=== PATIENT | male | born 1990 | race Caucasian/White ===

== ENCOUNTER 2020-04-23 14:24 | Inpatient (IN) | payer OTHER ==
[2020-04-23 15:39] VITALS: BMI 26.5
[2020-04-23] MEDS ORDERED: ACETAMINOPHEN 325 MG TABLET (FP) PO PRN ×2 (20:04)
[2020-04-23] MEDS ORDERED: MAGNESIUM CITRATE 300 ML BOTTLE PO PRN (20:04)
[2020-04-23] MEDS ORDERED: ONDANSETRON *ODT* 4 MG TABLET SL PRN (20:04)
[2020-04-23] MEDS ORDERED: MENTHOL/PHENOL 1 EACH UD MM PRN (20:04)
[2020-04-23] MEDS ORDERED: MAG HYDROX/AL HYDROX/SIMETH 30 ML UNIT-DOSE CUP PO PRN (20:04)
[2020-04-23] MEDS ORDERED: MAGNESIUM HYDROX 2400MG/30ML ORAL SUSPENSION 30 ML CUP PO PRN (20:04)
[2020-04-23] MEDS ORDERED: IBUPROFEN 400 MG TABLET (FP) PO PRN (20:04)
[2020-04-23] MEDS ORDERED: BISMUTH SUBSALICYLATE 524 MG/30 ML UD PO PRN (20:04)
[2020-04-23] MEDS ORDERED: METHADONE HCL 10 MG TABLET (FOR DETOX USE ONLY) PO ONE (20:07)
[2020-04-23] MEDS ORDERED: METHADONE 20 MG, METHADONE 5 MG PO ONE (21:00)
[2020-04-23] MEDS ORDERED: METHADONE (DETOX) 20 MG, METHADONE (DETOX) 5 MG PO ONE (21:00)
[2020-04-23] MEDS ORDERED: METHADONE HCL 5 MG TABLET (FOR DETOX USE ONLY) ONE (21:22)
[2020-04-23] MEDS ORDERED: METHADONE HCL 10 MG TABLET (FOR DETOX USE ONLY) ONE (21:23)
[2020-04-23] MEDS: hydrOXYzine PAMOATE 25 MG CAPSULE (FP) PO PRN (21:35)
[2020-04-23] MEDS: THIAMINE HCL 100 MG TABLET (FP) PO SCH (21:35)
[2020-04-23] MEDS ORDERED: MELATONIN 5 MG TABLETS PO SCH (22:00)
[2020-04-23] MEDS: METHOCARBAMOL 500 MG TABLET PO PRN (22:59)
[2020-04-23] MEDS ORDERED: hydrOXYzine PAMOATE 25 MG CAPSULE (FP) PO ONE (23:00)
[2020-04-23] MEDS ORDERED: MELATONIN 5 MG TABLETS PO ONE (23:01)
[2020-04-24] MEDS: GABAPENTIN 400 MG CAPSULE PO SCH ×3 (06:05→22:18)
[2020-04-24] MEDS: PRENATAL VITAMINS W/ FOLIC ACID TABLET (FP) PO SCH (09:18)
[2020-04-24] MEDS ORDERED: METHADONE HCL 10 MG TABLET (FOR DETOX USE ONLY) PO ONE (10:00)
[2020-04-24] MEDS: METHOCARBAMOL 500 MG TABLET PO PRN (12:26)
[2020-04-24] MEDS: hydrOXYzine PAMOATE 25 MG CAPSULE (FP) PO PRN (12:27)
[2020-04-24] MEDS: cloNIDine HCL 0.1 MG TABLET PO PRN ×2 (12:27→18:49)
[2020-04-24 13:44] LABS: POTASSIUM 4.1 mmol/L (3.5-5.1)
[2020-04-24 13:48] LABS: ALBUMIN 4.2 g/dl (3.4-5.0); BLOOD UREA NITROGEN 8.6 mg/dL (7-18); CALCIUM 9.5 mg/dL (8.5-10.1); HEMATOCRIT 39.1 % (35.4-49); HEMOGLOBIN 13.1 GM/dL (11.7-16.9); MCH 28.1 pg (25.7-33.7); MCHC 33.4 g/dl (32.0-35.9); MEAN CELL VOLUME 84.1 fl (80-96); MEAN PLT VOLUME 9.2 fl (7.5-11.1); PLATELET COUNT 219 K/MM3 (134-434); RBC 4.65 M/mm3 (4.00-5.60); RDW 13.2 % (11.9-15.9); WHITE BLOOD COUNT 5.8 K/mm3 (4.0-10.0)
[2020-04-24 13:51] LABS: CREATININE 0.7 mg/dL (0.55-1.3)
[2020-04-24 13:52] LABS: BILIRUBIN,TOTAL 0.9 mg/dL (0.2-1); TOT PROT 6.9 g/dl (6.4-8.2)
[2020-04-24] MEDS: THIAMINE HCL 100 MG TABLET (FP) PO SCH (22:18)
[2020-04-24] MEDS: MELATONIN 5 MG TABLETS PO SCH (22:19)
[2020-04-24] MEDS: SUVOREXANT 10 MG TABLET PO PRN (22:27)
[2020-04-25] MEDS: GABAPENTIN 400 MG CAPSULE PO SCH ×3 (05:54→22:10)
[2020-04-25] MEDS: hydrOXYzine PAMOATE 25 MG CAPSULE (FP) PO PRN ×4 (05:55→23:07)
[2020-04-25] MEDS: cloNIDine HCL 0.1 MG TABLET PO PRN ×4 (05:56→23:07)
[2020-04-25] MEDS: PRENATAL VITAMINS W/ FOLIC ACID TABLET (FP) PO SCH (09:17)
[2020-04-25] MEDS ORDERED: METHADONE HCL 5 MG TABLET (FOR DETOX USE ONLY) PO ONE (10:00)
[2020-04-25] MEDS: THIAMINE HCL 100 MG TABLET (FP) PO SCH (22:10)
[2020-04-25] MEDS: SUVOREXANT 10 MG TABLET PO PRN (22:12)
[2020-04-25] MEDS: MELATONIN 5 MG TABLETS PO SCH (22:12)
[2020-04-25] MEDS: METHOCARBAMOL 500 MG TABLET PO PRN (23:07)
[2020-04-26] MEDS: GABAPENTIN 400 MG CAPSULE PO SCH ×3 (06:04→22:37)
[2020-04-26] MEDS: hydrOXYzine PAMOATE 25 MG CAPSULE (FP) PO PRN ×3 (06:51→18:38)
[2020-04-26] MEDS: PRENATAL VITAMINS W/ FOLIC ACID TABLET (FP) PO SCH (09:24)
[2020-04-26] MEDS ORDERED: METHADONE HCL 10 MG TABLET (FOR DETOX USE ONLY) PO ONE (10:00)
[2020-04-26] MEDS: METHOCARBAMOL 500 MG TABLET PO PRN (18:38)
[2020-04-26] MEDS: THIAMINE HCL 100 MG TABLET (FP) PO SCH (22:37)
[2020-04-26] MEDS: SUVOREXANT 10 MG TABLET PO PRN (22:37)
[2020-04-26] MEDS: MELATONIN 5 MG TABLETS PO SCH (22:37)
[2020-04-27] MEDS: hydrOXYzine PAMOATE 25 MG CAPSULE (FP) PO PRN ×2 (00:40→09:15)
[2020-04-27] MEDS: GABAPENTIN 400 MG CAPSULE PO SCH (06:00)
[2020-04-27] MEDS: METHOCARBAMOL 500 MG TABLET PO PRN (06:01)
[2020-04-27] MEDS: PRENATAL VITAMINS W/ FOLIC ACID TABLET (FP) PO SCH (09:15)
[2020-04-27] MEDS ORDERED: METHADONE HCL 5 MG TABLET (FOR DETOX USE ONLY) PO ONE (10:00)
[2020-04-27 10:02] VITALS: BP 119/76; PULSE 98; TEMP 98.4
== END 2020-04-27 12:00 | disposition home or self-care (01) | DRG 773 ==
LOC: YASAS 14:24 → Y6N 20:41
PROVIDERS: ADMIT Allergy & Immunology; ATTEND Allergy & Immunology
PROC: HZ2ZZZZ Detoxification Services for Substance Abuse Treatment (ICD-10-PCS; principal; 2020-04-23)
DX: F11.23 Opioid dependence with withdrawal (principal); F13.20 Sedative, hypnotic or anxiolytic dependence, uncomplicated; F14.20 Cocaine dependence, uncomplicated; F12.20 Cannabis dependence, uncomplicated; F17.210 Nicotine dependence, cigarettes, uncomplicated; F19.24 Other psychoactive substance dependence with psychoactive substance-induced mood disorder; F19.282 Other psychoactive substance dependence with psychoactive substance-induced sleep disorder; F19.280 Other psychoactive substance dependence with psychoactive substance-induced anxiety disorder; B18.2 Chronic viral hepatitis C; M54.42 Lumbago with sciatica, left side; M54.6 Pain in thoracic spine
CPT/HCPCS: 36415; 71045-TC-FY; 80053; 85027; 86780; 93005; 93010; C9803; J0735; Q0162; U0003